=== PATIENT | female | born 1995 | race Caucasian/White ===

== ENCOUNTER 2021-03-29 19:28 | Emergency (ER) | payer OTHER ==
[~2021-03-29] VITALS: Ht 167.6 cm; Wt 127.0 kg
[2021-03-29] MEDS ORDERED: PHENERGAN 25 MG25 M1 PO (21:03)
[2021-03-29] MEDS ORDERED: BUTALB-APAP-CA1 EACH PO (21:03)
[2021-03-29 21:29] VITALS: BP 149/95
== END 2021-03-29 21:29 | disposition home or self-care (01) ==
LOC: M.ERS 19:28
DX: G43.909 Migraine, unspecified, not intractable, without status migrainosus (principal)